=== PATIENT | female | born 1985 | race Caucasian/White ===

== ENCOUNTER 2024-05-24 10:59 | Outpatient (CLI) | payer SELFPAY ==
[2024-05-24 11:10] LABS: COC Drug Screen Collection Only
== END 2024-05-24 23:59 | disposition home or self-care (01) ==
DX: Z02.83 Encounter for blood-alcohol and blood-drug test (principal)

== ENCOUNTER 2024-08-04 12:52 | Emergency (ER) | payer SELFPAY ==
[2024-08-04 14:30] VITALS: BP 117/68; PULSE 113; RESP 19; TEMP 36.9; O2SAT 98; BMI 35.7
[2024-08-04 14:54] LABS: UTC Influenza A Antigen Negative (Negative); UTC Influenza B Antigen Negative (Negative)
--- NOTE | 2024-08-04 15:02 | EXP.UTC ---
Discharge Plan Disposition Patient Disposition: Home, Self-Care Condition: Good Prescriptions Prescriptions: No Action buspirone 10 mg Tablet 10 mg PO BID Referrals Follow up/Referrals: Jose Arana APRN [Primary Care Provider] - See instructions Activity Restrictions/Add. Instructions Additional Instructions/Restrictions: *Monitor Temp, Over the counter Motrin or Tylenol as directed/as needed Tylenol every 4 hours and Motrin every 6 hours (as long as your family doctor has told you that you can take it) for fever or pain. and straight to ER if unable to lower temp less than 101.0 after medication given *Warm salt water gargles may help to soothe the throat *Throat Lozenges? *Warm fluids like tea with honey may help to soothe the throat? *Sleep elevated *Humidifier/Vaporizer Follow up IMMEDIATELY for new or worsening symptoms or no Noticeable improvement over the next 48-72 hours. 911 for difficulty breathing or swallowing Clinical Impressions Clinical Impression: Viral upper respiratory infection Instructions Patient Instructions: DI for Viral Upper Respiratory Infection -- Adult Print Language Print Language: Serbian Discharge ED Provider: Lucrecia Benavides [facility] [place] HPI General Stated complaint: congestion cough body aches Mode of Arrival: Ambulatory Source of Information: Patient Limitations: No Limitations Time Seen by Provider: 08/04/24 15:02 Description of Symptoms (Recalled from Triage Doc. by RN): PATIENT C/O CONGESTION, COUGH, BODY ACHES, AND HEADACHE X 2 DAYS. SHE ALSO STATES THAT HER ELBOW IS SORE HEENT Symptoms (Recalled from RN notes): No Resp Symptoms (Recalled from RN notes): Yes Skin Symptoms (Recalled from RN notes): No MS Symptoms (Recalled from RN notes): Yes Functional Status (Recalled from RN notes): WNL History of Present Illness Provider Complaint: Patient states that she had strep throat last week and was feeling better from that but 2 days ago she started with body ache, chills, headache, nasal congestion and dry cough States that she was around her daughter that tested positive for RSV not sure if she may have that or not Related Data Home Medications ?Medication ?Instructions ?Recorded ?Confirmed buspirone 10 mg tablet 10 mg PO BID 08/04/24 08/04/24 Allergies Allergy/AdvReac Type Severity Reaction Status Date / Time No Known Allergies Allergy Verified 08/04/24 14:36 Worker's Comp Is this a Worker's Comp case?: No [facility] Disclaimer: The information contained in this section may have been updated after the patient was seen, as this information can be updated by other users. Medical History (Updated 08/04/24 @ 15:10 by Lucrecia Benavides APRN) Anxiety History of stroke Hypertension Surgical History (Updated 08/04/24 @ 14:37 by Park Tobin RN) History of section History of tubal ligation Social History Smoking Status: Unknown if ever smoked alcohol intake: never current occupational status: employed Travel in the last 8 weeks: None ROS Obtained: Yes All systems reviewed & no additional complaints except as documented and Yes Systems reviewed as appropriate & no additional complaints except as documented Constitutional Constitutional: Reports system reviewed and no additional complaints, except as documented, Reports as per HPI, Reports body ache, Reports chills and Reports headache(s) ENT Ears, Nose, Mouth, and Throat: Reports system reviewed and no additional complaints, except as documented, Reports as per HPI, Reports headache(s), Reports nasal congestion and Reports nasal discharge Cardiovascular Cardiovascular: Reports system reviewed and no additional complaints, except as documented and Reports as per HPI Respiratory Respiratory: Reports system reviewed and no additional complaints, except as documented, Reports as per HPI and Reports cough Gastrointestinal Gastrointestingal: Reports system reviewed and no additional complaints, except as documented and as per HPI Neurologic Neurologic: Reports headache(s) Physical Exam General General appearance: alert and in no apparent distress ENT ENT exam: Present mucous membranes moist Expanded ENT Exam Nose exam: Absent sinus tenderness Throat exam: Present normal inspection Respiratory Respiratory exam: Present normal lung sounds bilaterally; Absent respiratory distress or wheezes Cardiovascular Cardiovascular exam: Present regular rate, normal rhythm and normal heart sounds Neurological Exam Neurological exam: Present alert, oriented X3 and normal gait Medical Decision Making Medical Records Screening: Per USPSTF and CDC recommendations, given the prevalence of disease in our region, it is our hospital?s policy to screen for HIV and viral Hepatitis for all patients aged 18 and over and those with ongoing risk factors. Henrry Inquiry Pt receiving controlled substance: No Henrry was queried for this patient: No Vital Signs: 08/04/24 14:30 Temperature 98.4 F Temperature Source Oral Pulse Rate [Left Brachial] 113 H Respiratory Rate 19 Blood Pressure [Left Arm] 117/68 Blood Pressure Mean [Left Arm] 84 Blood Pressure Source [Left Arm] Automatic Cuff Blood Pressure Position [Left Arm] Sitting 02 Sat by Pulse Oximetry 98 Oxygen Delivery Method Room Air Lab Data Lab results reviewed: Yes I reviewed the patient's lab results. Lab Results 08/04/24 14:32: Influenza Type A Ag Negative, Influenza Type B Ag Negative
[2024-08-04 15:20] VITALS: BP 117/68; PULSE 113; RESP 19; TEMP 36.9; O2SAT 98
[2024-08-04 16:08] LABS: RSV Rapid Ab Screen Negative (Negative)
== END 2024-08-04 15:23 | disposition home or self-care (01) ==
PROVIDERS: Emergency Provider Nurse Practitioner; PCP Nurse Practitioner Family
DX: J06.9 Acute upper respiratory infection, unspecified (principal)
CPT/HCPCS: 87635; 87804; 87807; 99213; G0381

== ENCOUNTER 2025-04-11 19:29 | Emergency (ER) | payer OTHER, SELFPAY ==
[2025-04-11 19:57] VITALS: BP 137/94; PULSE 102; RESP 22; TEMP 36.5; O2SAT 100; BMI 32.6
--- NOTE | 2025-04-11 20:00 | HMH.EDGENADL ---
Discharge Plan Disposition Patient Disposition: Home, Self-Care Prescriptions Prescriptions: No Action buspirone 10 mg Tablet 10 mg PO BID Referrals Follow up/Referrals: Jose Arana APRN [Primary Care Provider, Medical] - See instructions Activity Restrictions/Add. Instructions Additional Instructions/Restrictions: Follow-up with your primary care physician in and Dr. Nunez tomorrow as discussed. I can recheck your blood pressure there and if elevated again and they feel necessary can start you on blood pressure medication. The risk of starting on blood pressure medication from the emergency department can drop your blood pressure low and cause strokes, and given your blood pressure is more back to normal, is felt that the risk of this outweighs the potential benefit of starting on medication at this time. If you develop any new or worsening symptoms, or if you become concerned for your health for any reason, return to the emergency department for evaluation. Clinical Impressions Clinical Impression: High blood pressure Print Language Print Language: Uzbek Discharge ED Provider: Renny Valdovinos General Adult HPI General Chief complaint: Headache Stated complaint: High B/P 140/110 Time Seen by Provider: 04/11/25 19:55 Source of Information: Patient Limitations: No Limitations History of Present Illness HPI narrative: Karma Almaguer is a 39y female with a history of anxiety, stroke, hypertension who presents to the emergency department for complaints of elevated blood pressure. Patient states that today, she felt a pulsating on both sides of her head that has been intermittent and she felt like the top of her head was warm. She states that she was diagnosed with blood pressure in the past but lost much weight and her blood pressure improved and she does not take medication for it currently. She states that when her blood pressure was elevated in the past, these were the symptoms she had. She went to see her PCP who took her blood pressure and it was 140 over 110 x 2. She had 3 EKGs done and her PCP spoke with Dr. Nunez who stated that they were normal. She was told to come to the emergency department for possible workup and to possibly be started on blood pressure medications. Patient does state that she was extremely anxious at the time and feels like that may have been contributing to her blood pressure. She denies having any chest pain, shortness of breath, vision changes, headache. Patient's blood pressure on arrival was 133/97. She is otherwise asymptomatic. Related Data Home Medications ?Medication ?Instructions ?Recorded ?Confirmed buspirone 10 mg tablet 10 mg PO BID 08/04/24 08/04/24 Allergies Allergy/AdvReac Type Severity Reaction Status Date / Time No Known Allergies Allergy Verified 08/04/24 14:36 [facility] Disclaimer: The information contained in this section may have been updated after the patient was seen, as this information can be updated by other users. Medical History (Updated 04/11/25 @ 20:17 by Renny Valdovinos MD) Anxiety History of stroke Hypertension Surgical History (Updated 08/04/24 @ 14:37 by Park Tobin RN) History of section History of tubal ligation Social History (Updated 08/04/24 @ 15:10 by Lucrecia Benavides APRN) Smoking Status: Never smoker alcohol intake: never current occupational status: employed Travel in the last 8 weeks?: None Have you lived/traveled outside [place] in past 30 days?: No Contact w/someone who lives/traveled outside [place] past 30 days?: No Exposure to someone with infectious disease in past 14 days?: No Do you have a fever (greater than 100.4 F or 38 C)?: No Have you tested positive for COVID-19?: No Exposed to someone with COVID-19 in past 14 days?: No Do you have a sore throat?: No Do you have a cough?: No Do you have any weakness?: No Do you have any diarrhea?: No Are you experiencing any unusual bleeding?: No Do you have any muscle aches/pain?: No Do you have any abdominal pain?: No Are you experiencing loss of taste or smell?: No ROS Obtained: Yes Systems reviewed as appropriate & no additional complaints except as documented Physical Exam General General appearance: alert and in no apparent distress Head Head exam: atraumatic Eye Eye exam: Present normal appearance ENT ENT exam: Present normal external ear exam Neck Neck exam: Present full ROM Chest Chest inspection: Present symmetric chest wall rise Respiratory Respiratory exam: Present normal lung sounds bilaterally; Absent respiratory distress, wheezes or stridor Cardiovascular Cardiovascular exam: Present regular rate and normal rhythm Abdominal Exam Abdominal exam: Present soft; Absent tenderness or guarding Extremities Exam Extremities exam: Present normal inspection Back Exam Back exam: Present normal inspection Neurological Exam Neurological exam: Present alert and oriented X3 Psychiatric Psychiatric exam: Present normal affect Skin Skin exam: Present warm and dry Medical Decision Making Medical Records Screening: Per USPSTF and CDC recommendations, given the prevalence of disease in our region, it is our hospital?s policy to screen for HIV and viral Hepatitis for all patients aged 18 and over and those with ongoing risk factors. Henrry Inquiry Pt receiving controlled substance: No Vital Signs: 04/11/25 19:57 04/11/25 20:02 Temperature 97.7 F Temperature Source Oral Pulse Rate 90 Pulse Rate [Right] 102 H Respiratory Rate 22 18 Blood Pressure 133/97 H Blood Pressure [Right Arm] 137/94 H Blood Pressure Mean [Right Arm] 108 Blood Pressure Source [Right Arm] Automatic Cuff Blood Pressure Position Sitting Blood Pressure Position [Right Arm] Sitting 02 Sat by Pulse Oximetry 100 100 Oxygen Delivery Method Room Air Room Air Medical Decision Narrative: Karma Almaguer is a 39y female with a history of anxiety, stroke, hypertension who presents to the emergency department for complaints of elevated blood pressure. Patient states that today, she felt a pulsating on both sides of her head that has been intermittent and she felt like the top of her head was warm. She states that she was diagnosed with blood pressure in the past but lost much weight and her blood pressure improved and she does not take medication for it currently. She states that when her blood pressure was elevated in the past, these were the symptoms she had. She went to see her PCP who took her blood pressure and it was 140 over 110 x 2. She had 3 EKGs done and her PCP spoke with Dr. Nunez who stated that they were normal. She was told to come to the emergency department for possible workup and to possibly be started on blood pressure medications. Patient does state that she was extremely anxious at the time and feels like that may have been contributing to her blood pressure. She denies having any chest pain, shortness of breath, vision changes, headache. Patient's blood pressure on arrival was 133/97. She is otherwise asymptomatic. Physical exam, stated above, reveals well-appearing female in no distress. She does not appear short of breath. Cardiopulmonary exam is unremarkable without murmur, wheezing, rales or rhonchi. Nonfocal neurological exam. GCS 15. Given patient's blood pressure 133/97 and the fact that she has no alarming symptoms, such as headache, chest pain, shortness of breath or vision changes to suggest hypertensive emergency, is felt that no workup is indicated at this time. She likely has mild hypertension but could benefit from starting antihypertensives, however given her reassuring blood pressure at this time, it is felt that the risks of starting her on antihypertensive medications from the emergency department outweigh the potential benefits, which include dropping her blood pressure and causing stroke. She did state that she has follow-up with Dr. Nunez's office tomorrow as well as her PCP and I encouraged her to attend these appointments for repeat blood pressure check and if they feel necessity to start her on antihypertensives, they can do so at that time. She appeared reassured by this. Return precautions were given. All questions were answered. She demonstrated understanding and was in agreement this plan. She was then discharged from the emergency department in stable condition. Critical Care Critical Care Time Critical Care Time: No
--- OUTSIDE RECORDS SUMMARY | 2025-04-11 20:01 | XMS_ITS | Clinical Summary ---
Author Organization [facility] Phone Care Team Providers Care Control Panel Operator Name Role Phone Unavailable Primary Care Provider Unavailabl e Allergies No known active allergies Medications methylPREDNISol one (MEDROL DOSPACK) 4 mg Oral Tablets, Dose PackIndications :Tendinitis of right quadriceps tendon follow package directions 1 Each 4 Active Active Problems No known active problems Social History Tobacco Use Types Packs/Day Years Used Date Smoking Tobacco: Never Assessed Comments Unknown Sex and Gender Information Value Date Recorded Sex Assigned at Not on file Legal Sex Female 2:43 PM EST Gender Identity Not on file Sexual Orientation Not on file Obstetrics History Plan of Treatment Health Maintenance Due Date Last Done Comments Annual Wellness Exam 1986 Hepatitis B Vaccine (1 of 3 - 19+ 3-dose series) 2002 Cervical Cancer Screening 2004 Pap Smear 2004 HPV/Pap Cotest 2013 Breast Cancer Screening 2023 COVID-19 Vaccine (2023-2 5 season) 2025 Influenza Vaccine (#1) 2025 DTaP/TDaP/Td (2 - Td or Tdap) 07/27/2029 07/27/2019 Meningococcal B Vaccine Aged Out No l onger eligible based on patient's age to complete this topic Pneumococcal Vaccine 0-49 Aged Out No longer eligible based on patient's age to complete this topic Insurance [employer] [facility] [place] [id number]
[2025-04-11 20:02] VITALS: BP 133/97; PULSE 90; RESP 18; O2SAT 100
[2025-04-11 20:24] VITALS: BP 117/86; PULSE 91; RESP 16; TEMP 36.7; O2SAT 99
== END 2025-04-11 20:25 | disposition home or self-care (01) ==
PROVIDERS: Emergency Provider Student in an Organized Health Care Education/Training Program; PCP Nurse Practitioner Family
DX: I10 Essential (primary) hypertension (principal)
CPT/HCPCS: 99283